=== PATIENT | female | born 1985 | race Caucasian/White ===

== ENCOUNTER 2016-06-22 18:50 | Inpatient (IN) | payer BC ==
[2016-06-22] MEDS ORDERED: PROMETHAZINE HCL 25 MG/1 ML VIAL IVPUSH ONE (20:24)
[2016-06-22] MEDS ORDERED: BUTORPHANOL TARTRATE 1 MG/ML VIAL IVPB ONE (20:24)
[2016-06-22] MEDS ORDERED: DINOPROSTONE 10 MG VAGINAL SUPPOSITORY VG ONE (20:29)
--- NOTE | 2016-06-22 20:59 | PN ---
Progress Note (short form) - Note Progress Note: 31 yo @ 39.4 weeks gestation admitted for induction of labor. Cervidil inserted a t 8:[address] Stanley request. VE : /-2, membrane intact.
[2016-06-22] MEDS ORDERED: DEXTROSE 5%-LACTATED RINGERS 1,000 ML IV ONE (21:07)
[2016-06-22 21:13] LABS: BASOPHIL 0.4 % (0-2.0); EOSINOPHIL 0.5 % (0-4.5); MCH 30.3 pg (25.7-33.7); MCHC 33.7 g/dl (32.0-36.0); MEAN PLT VOLUME 8.2 fl (7.5-11.1); NEUTROPHILS 81.7 % (42.8-82.8); PLATELET COUNT 315 K/MM3 (134-434); RDW 13.4 % (11.6-15.6); WHITE BLOOD COUNT 12.6 K/mm3 (4.0-10.0)
[2016-06-22 21:25] LABS: INR 1.03 (0.82-1.09); PROTHROMBIN TIME (PATIENT) 11.3 SEC (9.98-11.88)
[2016-06-22 21:27] LABS: ACTIVATED PTT 28.1 SECONDS (26.9-34.4)
[2016-06-22 21:36] LABS: CALCIUM 8.7 mg/dL (8.5-10.1); COCKROFT - GAULT 273.4195; CREATININE 0.5 mg/dL (0.55-1.02)
[2016-06-22 23:24] VITALS: BMI 39.4
[2016-06-23] MEDS ORDERED: OXYTOCIN 15 UNITS/ LR 250 ML 250 ML IVPB SCH (06:30)
--- NOTE | 2016-06-23 08:15 | PN ---
Ante-Partal Exam - Subjective Subjective: Pt tolerating contractions Vital Signs: Vital Signs Temperature 98.0 F 06/23/16 06:00 Pulse Rate 81 06/23/16 06:00 Respiratory Rate 16 06/23/16 06:00 Blood Pressure 116/66 06/23/16 06:00 O2 Sat by Pulse Oximetry (%) Bleeding: No Headache: No Visual changes: No Right upper quadrant pain: No Pain (scale 1-10): 3 - Contractions Contractions: Yes Regularity: Irregular Intensity: Mild/Mod Monitor Mode: External - Exam during Labor Heart Rate: 135 Variability: Moderate Category: I Monitor Accelerations: Present Monitor Decelerations: None Exam: Vaginal Dilatation (cm): 4.5 Effacement (%): 90 Amniotic Membrane Status: Ruptured (AROM for clear fluid) Amniotic Fluid: Clear Presentation: Vertex Station: -1 - Intrapartum Hemorrhage Risk High Risk Factors: None Risk Score: 0 Risk Level: Low Risk - Assessment/Plan Assessment/Plan: 31 y/o with SIUP at 39.5 weeks here with elective IOL - FHTS cat 1 - AFVSS - s/p cervidil, AROM at this check for clear fluid, on pitiocin at 3 - continue active management - epidural prn
--- NOTE | 2016-06-23 13:38 | PN ---
Delivery - Delivery Vaginal Delivery: No Problems, Spontaneous Type of Anesthesia: Local, Epidural Episiotomy/Laceration: 2nd degree (and bilateral labial) EBL (cc): 350 Delivery, Single - Stages of Labor Date of Delivery: 06/23/16 Time of Delivery: 13:07 Date Placenta Delivered: 06/23/16 Time Placenta Delivered: 13:09 Placenta: Yes: Spontaneous, Expressed - Condition of Director Sanitation Bureau/Cotton Stomper Present: No Infant Gender: Female Position: Left, OA - 1 Minute Total Score: 9 5 Minutes Total Score: 9 - Feeding Plan Initial Plan: Exclusive throughout hospitalization Remarks - Remarks Remarks: Uncomplicated of baby girl from BLAYNE position anterior shoulder (right) delivered with ease, along with remainder of 3VC noted, clamped and cut placenta delivered spontaneously and in tact 2nd degree and bilateral labial lacerations noted - repaired with 2-0 chromic and 3-0 vicryl sutures with excellent hemostatic/cosmetic result EBL 350cc sponge and needle count correct at the end of the delivery pitocin running mom stable baby to well baby nursery Apgars 9/9
--- NOTE | 2016-06-23 13:44 | HP ---
Past Medical History - Admission Chief Complaint: Late entry from 0810 am. Here for labor induction History of Present Illness: 31 y/o with SIUP at 39.5 weeks gestation admitted last night for elective labor induction. The patient has had a complicated only by 1st trimester bleeding which resolved spontaneously, sciatic nerve pain and most recently PUPPS. The patient is also obese - BMI 39.5. A positive blood type, HIV negative, GBS negative, Rubella immune, HepBSAB negative. Pt reports occasional cramping/contractions. +FM, no VB/LOF upon admission. Pt received cervidil overnight which fell out at 3:00 am and the patient received one dose of Stadol 2mg and Phenergan 25mg IV for pain control. Currently the patient is tolerating contractions. History Source: Patient, Medical Record Limitations to Obtaining History: No Limitations - Past Medical History RELIGIOUS EDUCATOR: No: Migraine, Syncope Cardiovascular: No: HTN, DE Pulmonary: No: Asthma, COPD Gastrointestinal: No: GERD, GI Bleed Reproductive: No: Ectopic , Endometriosis, Fibroids, PID ...: 5 ...Para: 0 ...Term: 0 ...: 0 ...Spon : 2 ...Induced : 2 ...Multiple Gestation: 0 ...EDC by Dates: 06/25/16 ...EDC by Sono: 06/15/16 Heme/Onc: No: Anemia Infectious Disease: No: HIV, MRSA, STD's Psych: No: Anxiety, Bipolar, Depression Musculoskeletal: Yes: Other (sciatic nerve pain) Dermatology: Yes: Other (PUPPS) - Past Surgical History Hx Myomectomy: No Hx Transabdominal Cerclage: No Additional Surgical History: VTOP/TAB X 2 - Smoking History Smoking history: Former smoker Have you smoked in the past 12 months: No - Alcohol/Substance Use Hx Alcohol Use: No - Social History Usual Living Arrangement: Yes: With Spouse ADL: Independent History of Recent Travel: No Home Medications - Allergies Allergies/Adverse Reactions: Allergies Allergy/AdvReac Type Severity Reaction Status Date / Time amoxicillin Allergy Intermediate Hives Verified 06/06/16 03:39 - Home Medications Home Medications: Ambulatory Orders Vit/Iron Fumarate/FA [ Tablet] 1 tablet PO DAILY 06/06/16 Review of Systems - Review of Systems Constitutional: reports: No Symptoms Eyes: reports: No Symptoms HENT: reports: No Symptoms Neck: reports: No Symptoms Cardiovascular: reports: No Symptoms Respiratory: reports: No Symptoms Gastrointestinal: reports: No Symptoms Genitourinary: reports: No Symptoms Breasts: reports: No Symptoms Reported Musculoskeletal: reports: No Symptoms Integumentary: reports: No Symptoms Neurological: reports: No Symptoms Endocrine: reports: No Symptoms Hematology/Lymphatic: reports: No Symptoms Psychiatric: reports: No Symptoms Pain Intensity: 4 (with occasional contractions) Physical Exam - Maternity Vital Signs: Vital Signs Temperature 98.2 F 06/23/16 10:00 Pulse Rate 78 06/23/16 12:00 Respiratory Rate 18 06/23/16 12:00 Blood Pressure 111/62 06/23/16 12:00 O2 Sat by Pulse Oximetry (%) Constitutional: Yes: Well Nourished, No Distress, Calm Eyes: Yes: Conjunctiva Clear, EOM Intact HENT: Yes: Atraumatic, Normocephalic Neck: Yes: Supple, Trachea Midline Cardiovascular: Yes: Regular Rate and Rhythm Lungs: Clear to auscultation Breast(s): Yes: WNL - Abdominal Exam/OB Fundal Height: 40 Number of Fetuses: Single Presentation: Vertex Contractions: Yes Regularity: Irregular Intensity: Mild/Mod Monitor Mode: External Category: I Accelerations: Uniform Decelerations: None - Vaginal Exam/OB Vaginal Bleediing: No Dilatation (cm): 4.5 Effacement (%): 90 Amniotic Membrane Status: Intact Presentation: Vertex/Position Station: -2 - Physical Exam Psychiatric: Yes: Alert, Oriented - Labs Lab Results: CBC, BMP 06/22/16 20:30 06/22/16 20:30 Hemorrhage Risk Assessment - Risk Factors Medium Risk Factors: Yes: None High Risk Factors: Yes: None Risk Score: 1 Risk Level: Medium Risk Problem List - Problems (1) Term Code(s): Z34.80 - ENCOUNTER FOR SUPRVSN OF NORMAL , UNSP TRIMESTER (2) Obesity (BMI 30-39.9) Code(s): E66.9 - OBESITY, UNSPECIFIED (3) Sciatic nerve pain Code(s): M54.30 - SCIATICA, UNSPECIFIED SIDE (4) PUPP (pruritic urticarial papules and plaques of ) Code(s): O26.86 - PRURITIC URTICARIAL PAPULES AND PLAQUES OF (PUPPP) Assessment/Plan 31 y/o admitted for elective labor induction, s/p cervidil - AFVSS - FHTs cat 1 - for AROM and then continue pitocin - GBS negative
[2016-06-23] MEDS ORDERED: BISACODYL 10 MG SUPP.RECT RC PRN (13:51)
[2016-06-23] MEDS ORDERED: BENZOCAINE 20% 57 GM BOTTLE TP PRN (13:51)
[2016-06-23] MEDS ORDERED: METHYLERGONOVINE MALEATE 0.2 MG/1 ML AMP IM PRN (13:51)
[2016-06-23] MEDS ORDERED: BENZOCAINE 28 GM HEMORRHOIDAL OINTMENT TP PRN (13:51)
[2016-06-23] MEDS ORDERED: WITCH HAZEL 50% (TUCKS) 40 PAD/JAR PAD TP PRN (13:51)
[2016-06-23] MEDS ORDERED: oxyCODONE HCL 5 MG TABLET PO PRN (13:51)
[2016-06-23] MEDS ORDERED: D5W-LR W/ 20 UNITS OXYTOCIN 1,000 ML IV SCH (14:00)
[2016-06-23] MEDS: ACETAMINOPHEN 325 MG TABLET (FP) PO PRN ×2 (14:20→18:07)
[2016-06-23] MEDS: IBUPROFEN 600 MG TABLET (FP) PO PRN ×2 (14:20→18:07)
[2016-06-23] MEDS ORDERED: TUBERCULIN PPD 5 TU/0.1ML SYRINGE (IN PATIENT USE ONLY) ID ONE (16:00)
[2016-06-24] MEDS: IBUPROFEN 600 MG TABLET (FP) PO PRN ×4 (01:44→22:51)
[2016-06-24] MEDS: ACETAMINOPHEN 325 MG TABLET (FP) PO PRN ×4 (01:46→22:50)
[2016-06-24 08:34] LABS: BASOPHIL 0.3 % (0-2.0); EOSINOPHIL 0.9 % (0-4.5); MCH 30.5 pg (25.7-33.7); MCHC 33.7 g/dl (32.0-36.0); MEAN CELL VOLUME 90.6 fl (80-96); MEAN PLT VOLUME 7.6 fl (7.5-11.1); NEUTROPHILS 75.1 % (42.8-82.8); PLATELET COUNT 265 K/MM3 (134-434); RDW 13.5 % (11.6-15.6); WHITE BLOOD COUNT 11.8 K/mm3 (4.0-10.0)
[2016-06-24] MEDS: PRENATAL VITAMINS W/ FOLIC ACID TABLET (FP) PO SCH (09:04)
[2016-06-24] MEDS ORDERED: DIPHTH,PERTUSS(ACELL),TET 0.5 ML DISP.SYRIN IM ONE (10:00)
--- NOTE | 2016-06-24 10:19 | PN ---
Post Progress Note - Subjective Subjective: Pt seen/evaluated today. Some perineal/vulvar soreness, otherwise no complaints. Voiding, passing flatus, tolerating diet and ambulating without difficulty. Feels well. Type of Delivery: Vital Signs: Vital Signs Temperature 98.2 F 06/24/16 10:00 Pulse Rate 103 H 06/24/16 10:00 Respiratory Rate 20 06/24/16 10:00 Blood Pressure 126/75 06/24/16 10:00 O2 Sat by Pulse Oximetry (%) Breast Exam: Yes: Soft Uterus: Yes: Fundus Firm, Fundus below umbilicus Abdomen/GI: Yes: Abdomen soft, Passing flatus, Tolerating PO. No: Abdominal Distention, Tender Lochia: Yes: Rubra Lochia, amount: Moderate Extremities: Yes: Edema (trace b/l edema ) Perineum: Yes: Laceration (2nd degree and right labial - repaired and healing well) - Labs Labs: CBC WBC 11.8 K/mm3 (4.0-10.0) H 06/24/16 07:45 RBC 2.98 M/mm3 (3.60-5.2) L 06/24/16 07:45 Hgb 9.1 GM/dL (10.7-15.3) L D 06/24/16 07:45 Hct 27.0 % (32.4-45.2) L D 06/24/16 07:45 MCV 90.6 fl (80-96) 06/24/16 07:45 MCHC 33.7 g/dl (32.0-36.0) 06/24/16 07:45 RDW 13.5 % (11.6-15.6) 06/24/16 07:45 Plt Count 265 K/MM3 (134-434) 06/24/16 07:45 MPV 7.6 fl (7.5-11.1) 06/24/16 07:45 Neutrophils % 75.1 % (42.8-82.8) 06/24/16 07:45 Lymphocytes % 16.9 % (8-40) D 06/24/16 07:45 Monocytes % 6.8 % (3.8-10.2) 06/24/16 07:45 Eosinophils % 0.9 % (0-4.5) 06/24/16 07:45 Basophils % 0.3 % (0-2.0) 06/24/16 07:45 Problem List - Problems (1) Term Code(s): Z34.80 - ENCOUNTER FOR SUPRVSN OF NORMAL , UNSP TRIMESTER (2) Obesity (BMI 30-39.9) Code(s): E66.9 - OBESITY, UNSPECIFIED (3) Sciatic nerve pain Code(s): M54.30 - SCIATICA, UNSPECIFIED SIDE (4) PUPP (pruritic urticarial papules and plaques of ) Code(s): O26.86 - PRURITIC URTICARIAL PAPULES AND PLAQUES OF (PUPPP) Assessment/Plan 31 y/o post day 1 from normal , stable and doing well - AFVSS - Hgb 9.1 post delivery, pt asymptomatic, stable, will continue vitamins +iron - regular diet - PO pain meds - routine care
[2016-06-24] MEDS ORDERED: SENNOSIDES/DOCUSATE COMBO (SENNA PLUS) TABLET (UD) PO PRN (22:00)
[2016-06-25] MEDS: ACETAMINOPHEN 325 MG TABLET (FP) PO PRN (08:31)
[2016-06-25] MEDS: IBUPROFEN 600 MG TABLET (FP) PO PRN (08:31)
[2016-06-25] MEDS: PRENATAL VITAMINS W/ FOLIC ACID TABLET (FP) PO SCH (09:32)
[2016-06-25 14:41] VITALS: BP 126/74; PULSE 88; TEMP 98
--- NOTE | 2016-07-10 14:19 | DS ---
DATE OF ADMISSION: 06/22/2016 DATE OF DISCHARGE: 06/25/2016 DIAGNOSES UPON ADMISSION: 1. Full-term, single intrauterine . 2. Obesity. 3. Sciatica. 4. Elective labor induction. DISCHARGE DIAGNOSES: 1. Full-term, single intrauterine . 2. Obesity. 3. Sciatica. 4. Elective labor induction. ADMITTING PHYSICIAN: Ashleigh Stanley DO LABORATORY DATA UPON DISCHARGE: Include a white blood cell count of 11.8, hemoglobin of 9.1, platelet count of 265. VITAL SIGNS UPON THE DAY OF DISCHARGE: A temperature of 98, pulse rate of 88, blood pressure of 126/74, a blood pressure mean of 91, and a respiratory rate of 20. CONSULTATIONS DURING HOSPITAL STAY: None. BRIEF HISTORY OF HOSPITAL STAY: Patient is a 31-year-old G5, P 0-0-4-0 who was admitted to Labor and Delivery on June 22, 2016, for an elective labor induction. The patient was about 39.4 weeks' gestation. The laborist concrete curer started Cervidil vaginally for induction of labor. On the evening of June 22, 2016, and on the morning of June 23, 2016, the patient was examined, and her cervix was found to be approximately 4.5 cm dilated, 90% effaced, and vertex was at -2 station. At which point, the patient's membranes were ruptured, and she was started on Pitocin. Later in the day on June 23, 2016, the patient underwent a normal spontaneous vaginal delivery of a live female . Please see delivery note for full details of the delivery. Patient had secondary perineal laceration and bilateral labial lacerations which were repaired in the usual fashion. On day 1 on June 24, 2016, the patient was doing well, ambulating, tolerating a regular diet, voiding, and had [id number] lochia rubra. On day 2, the patient was stable, again ambulating, voiding, tolerating a regular diet, passing flatus, and had minimal lochia. The patient was deemed stable for discharge home, was discharged home on day 2 in stable condition. The patient was given instructions to call with any heavy vaginal bleeding, fevers greater than 101.0, and any pain not controlled by pain medication. She was instructed to use Tylenol and Motrin over the counter for pain control as needed. The patient expressed understanding of these instructions, was discharged home in stable condition on June 25, 2016. ASHLEIGH STANLEY DO /[id number]
== END 2016-06-25 12:30 | disposition home or self-care (01) | DRG 775 ==
LOC: UNDOADMIN 18:50 → JLDR 18:50 → J3W 06-23 15:15
PROVIDERS: ADMIT Obstetrics & Gynecology; ATTEND Obstetrics & Gynecology
PROC: 3E0P7GC Introduction of Other Therapeutic Substance into Female Reproductive, Via Natural or Artificial Opening (ICD-10-PCS; 2016-06-22)
PROC: 10E0XZZ Delivery of Products of Conception, External Approach (ICD-10-PCS; principal; 2016-06-23)
PROC: 0KQM0ZZ Repair Perineum Muscle, Open Approach (ICD-10-PCS; 2016-06-23)
PROC: 0W8NXZZ Division of Female Perineum, External Approach (ICD-10-PCS; 2016-06-23)
DX: O70.1 Second degree perineal laceration during delivery (principal); Z37.0 Single live birth; O99.214 Obesity complicating childbirth; E66.9 Obesity, unspecified; Z68.39 Body mass index [BMI] 39.0-39.9, adult; Z3A.39 39 weeks gestation of pregnancy
CPT/HCPCS: 36415; 59409; 80048; 85025; 85610; 85730; 86593; 86850; 86900; 86901; 90715

== ENCOUNTER 2018-07-22 00:32 | Emergency (ER) | payer BC ==
[2018-07-22 01:37] VITALS: BP 111/71; PULSE 101; TEMP 98; BMI 37.4
--- NOTE | 2018-07-22 01:43 | PDOC ---
History of Present Illness - General Chief Complaint: Nausea/Vomiting Stated Complaint: VOMITING,9 WKS Time Seen by Provider: 07/22/18 01:43 - History of Present Illness Initial Comments: 33yo A5 currently 9 weeks (unknown LMP) with no significant PMH presenting with nausea and vomiting. Patient states she has had nausea/vomiting throughout the , but it has gotten acutely worse over the past two days. Her oil burner servicer and installer had prescribed her promethazine one week ago, but it stopped working. Patient has been unable to tolerate po intake without vomiting. She estimates about 40 episodes of bilious vomiting today. IUP with heartbeat has been confirmed via 7 week ultrasound. No abdominal pain, contractions, vaginal bleeding, or discharge. No dysuria, hematuria, or urgency. Denies fever, chills , chest pain, or shortness of breath. water quality assistant: Dr. Stanley Past History - Past Medical History Allergies/Adverse Reactions: Allergies Allergy/AdvReac Type Severity Reaction Status Date / Time amoxicillin Allergy Intermediate Hives Verified 07/22/18 01:37 Home Medications: Ambulatory Orders Vit/Iron Fum/Folic AC [ Tablet] 1 tablet PO DAILY 06/06/16 Metoclopramide HCl [Reglan] 10 mg PO PRN PRN #10 tablet 07/22/18 Nitrofurantoin Monohyd/M-Cryst [Macrobid -] 100 mg PO BID #10 capsule 07/22/18 GI Disorders: Yes (gallstones) - Reproductive History (#): 4 Para: 0 Spontaneous : 3 - Immunization History Immunization Up to Date: Yes - Suicide/Smoking/Psychosocial Hx Smoking History: Never smoked Have you smoked in the past 12 months: No Information on smoking cessation initiated: No Hx Alcohol Use: No Drug/Substance Use Hx: No Substance Use Type: None Review of Systems - Review of Systems Comments:: Constitutional: no fever, no chills HEENT: no throat pain, no dysphagia Cardiovascular: no chest pain, no palpitations Respiratory: no cough, no shortness of breath Gastrointestinal: no abdominal pain, +vomiting Genitourinary: no dysuria, no frequency Musculoskeletal: no myalgia, no arthralgia Skin: no rash, no itching Neurologic: no headache, no weakness *Physical Exam - Vital Signs Last Vital Signs Temp Pulse Resp BP Pulse Ox 98 F 101 H 18 111/71 98 07/22/18 00:32 07/22/18 00:32 07/22/18 00:32 07/22/18 00:32 07/22/18 00:32 - Physical Exam Comments: General: Awake, alert, and fully oriented, in no acute distress Head: No signs of trauma Eyes: EOMI, sclera anicteric ENT: Dry mucus membranes Neck: Normal ROM, supple Lungs: Lungs clear, Normal breath sounds Cardio: Regular rhythm, S1 and S2 present Abdomen: Soft, nontender Extremities: Normal range of motion, Distal pulses present SKIN: Warm, Dry, normal turgor Neurologic: Cranial nerves II through XII grossly intact. Normal speech ED Treatment Course - LABORATORY CBC & Chemistry Diagram: 07/22/18 02:09 07/22/18 02:09 Medical Decision Making - Medical Decision Making 33yo A5 currently 9 weeks (unknown LMP) with no significant PMH presenting with nausea and vomiting. DDX including but not limited to nausea/vomiting in , hyperemesis gravidarum, gastritis 1L NS, 4mg Zofran Denies pain, bleeding, or contractions. Previous TS is Rh+ 07/22/18 02:28 Patient no longer feels nauseous 07/22/18 02:49 CBC WBC 14.1 K/mm3 (4.0-10.0) H 07/22/18 02:09 RBC 4.91 M/mm3 (3.60-5.2) 07/22/18 02:09 Hgb 14.0 GM/dL (10.7-15.3) 07/22/18 02:09 Hct 42.7 % (32.4-45.2) D 07/22/18 02:09 MCV 86.9 fl (80-96) 07/22/18 02:09 MCH 28.6 pg (25.7-33.7) 07/22/18 02:09 MCHC 32.9 g/dl (32.0-36.0) 07/22/18 02:09 RDW 13.1 % (11.6-15.6) 07/22/18 02:09 Plt Count 424 K/MM3 (134-434) D 07/22/18 02:09 MPV 7.3 fl (7.5-11.1) L 07/22/18 02:09 Absolute Neuts (auto) 11.5 K/mm3 (1.5-8.0) H 07/22/18 02:09 Neutrophils % 81.9 % (42.8-82.8) 07/22/18 02:09 Lymphocytes % 12.2 % (8-40) D 07/22/18 02:09 Monocytes % 5.2 % (3.8-10.2) 07/22/18 02:09 Eosinophils % 0.2 % (0-4.5) 07/22/18 02:09 Basophils % 0.5 % (0-2.0) 07/22/18 02:09 Nucleated RBC % 0 % (0-0) 07/22/18 02:09 Leukocytosis of 14.1 No anemia CMP Sodium 137 mmol/L (136-145) 07/22/18 02:09 Potassium 3.8 mmol/L (3.5-5.1) 07/22/18 02:09 Chloride 104 mmol/L (98-107) 07/22/18 02:09 Carbon Dioxide 23 mmol/L (21-32) 07/22/18 02:09 Anion Gap 10 MMOL/L (8-16) 07/22/18 02:09 BUN 11 mg/dL (7-18) 07/22/18 02:09 Creatinine 0.5 mg/dL (0.55-1.3) L 07/22/18 02:09 Est GFR (CKD-EPI)AfAm 149.47 07/22/18 02:09 Est GFR (CKD-EPI)NonAf 128.97 07/22/18 02:09 Random Glucose 81 mg/dL (74-106) 07/22/18 02:09 Calcium 9.0 mg/dL (8.5-10.1) 07/22/18 02:09 Total Bilirubin 0.8 mg/dL (0.2-1) 07/22/18 02:09 AST 17 U/L (15-37) 07/22/18 02:09 ALT 39 U/L (13-61) 07/22/18 02:09 Alkaline Phosphatase 75 U/L (45-117) 07/22/18 02:09 Total Protein 7.6 g/dl (6.4-8.2) 07/22/18 02:09 Albumin 3.6 g/dl (3.4-5.0) 07/22/18 02:09 Beta HCG, Quant mIU/ml 07/22/18 02:09 Electrolytes WNL UA with bacteriuria and trace LE, 6WBC Will treat with macrobid Administering another 1L of NS Patient endorsing acid reflux, requesting pepcid. Ordered. 07/22/18 03:40 B-hcg is appropriate for estimated gestational age. Patient feeling much better Passed po challenge of water and saltine crackers Prescriptions sent to pharmacy Discharged 07/22/18 04:51 *DC/Admit/Observation/Transfer Diagnosis at time of Disposition: Vomiting affecting - Discharge Dispostion Disposition: HOME Condition at time of disposition: Stable - Prescriptions Prescriptions: Metoclopramide HCl [Reglan] 10 mg PO PRN PRN #10 tablet PRN Reason: Nausea Nitrofurantoin Monohyd/M-Cryst [Macrobid -] 100 mg PO BID #10 capsule - Referrals Referrals: Ashleigh Stanley DO [Staff Physician] - - Patient Instructions Printed Discharge Instructions: DI for Hyperemesis Gravidarum Additional Instructions: You were seen in the Emergency Department for nausea/vomiting during . Blood work was within normal limits. Urinalysis showed that you have bacteria in the urine. Prescriptions sent to your pharmacy. Follow-up with your oil burner servicer and installer. Call tomorrow morning and make an appointment. Your care is not complete until you do so. Return to the Emergency Department if you experience: -severe pain -persistent vomiting unrelieved by medicine, -lightheadedness -shortness of breath -high fever -any other concerning symptoms If you think you are having an emergency, call for emergency medical services or present to the emergency department right away. - Post Discharge Activity
--- NOTE | 2018-07-22 01:52 | PDOC ---
Attending Attestation - Resident Resident Name: Carmelita Freeman - ED Attending Attestation I have performed the following: I have examined & evaluated the patient, The case was reviewed & discussed with the resident, I agree w/resident's findings & plan - HPI HPI: 07/22/18 03:14 33-year-old gravid female complaining of nausea vomiting. Patient has had hyperemesis associated with this and is currently on promethazine at home which stopped working after using it for several days. She denies pelvic pain back pain or bleeding. She is well followed by an MANAGER OF PATIENT. - Physicial Exam PE: 07/22/18 03:15 Agree with resident's exam - Medical Decision Making 07/22/18 03:15 33-year-old gravid female with nausea vomiting Ultrasound at the bedside confirmed heart activity Patient received 2 L of IV fluid normal saline as well as Pepcid 20 mg IV and Zofran 4 mg IV She will be discharged on Reglan when necessary with MANAGER OF PATIENT follow-up
[2018-07-22] MEDS ORDERED: SODIUM CHLORIDE 1,000 ML IV STA ×2 (01:55→03:09)
[2018-07-22] MEDS ORDERED: ONDANSETRON 4 MG/2 ML VIAL IVPUSH ONE (01:56)
[2018-07-22 02:20] LABS: BASO % 0.5 % (0-2.0); EOS % 0.2 % (0-4.5); HEMATOCRIT 42.7 % (32.4-45.2); LYMPH % 12.2 % (8-40); MCH 28.6 pg (25.7-33.7); MCHC 32.9 g/dl (32.0-36.0); MEAN CELL VOLUME 86.9 fl (80-96); MEAN PLT VOLUME 7.3 fl (7.5-11.1); MONO % 5.2 % (3.8-10.2); NEUT % 81.9 % (42.8-82.8); PLATELET COUNT 424 K/MM3 (134-434); RBC 4.91 M/mm3 (3.60-5.2); RDW 13.1 % (11.6-15.6); WHITE BLOOD COUNT 14.1 K/mm3 (4.0-10.0)
[2018-07-22] MEDS ORDERED: ONDANSETRON 4 MG/2 ML VIAL ONE (02:21)
[2018-07-22 02:52] LABS: EPI CELLS 6.2 /HPF (0-5/HPF); HYALINE CASTS 17 /lpf (0-8); PH,URINE 5.5 (5.0-8.0); URINE APPEARANCE CLEAR; URINE BACTERIA 434.6 /hpf (NEGATIVE); URINE BILIRUBIN 2+ (NEGATIVE); URINE COLOR DK YELLOW; URINE GLUCOSE (UA) NEGATIVE (NEGATIVE); URINE KETONE 4+ (NEGATIVE); URINE LEUK ESTERASE TRACE (NEGATIVE); URINE NITRITE NEGATIVE (NEGATIVE); URINE PROTEIN NEGATIVE (NEGATIVE); URINE RBC 6 /hpf (0-4); URINE WBC 6 /hpf (0-5)
[2018-07-22 03:04] LABS: ALBUMIN 3.6 g/dl (3.4-5.0); BILIRUBIN,TOTAL 0.8 mg/dL (0.2-1); CREATININE 0.5 mg/dL (0.55-1.3); POTASSIUM 3.8 mmol/L (3.5-5.1); TOT PROT 7.6 g/dl (6.4-8.2)
[2018-07-22] MEDS ORDERED: NITROFURANTOIN MACROCRYSTAL 50 MG CAPSULE (FP) PO SCH (03:15)
[2018-07-22] MEDS ORDERED: FAMOTIDINE 20 MG/50 ML IVPB 20 MG/50 ML MG IVPB ONE ×2 (03:25→03:47)
[2018-07-22] MEDS ORDERED: NITROFURANTOIN MACROCRYSTAL 50 MG CAPSULE (FP) ONE (04:05)
== END 2018-07-22 04:47 | disposition home or self-care (01) ==
LOC: JER 00:32
PROC: 3E0337Z Introduction of Electrolytic and Water Balance Substance into Peripheral Vein, Percutaneous Approach (ICD-10-PCS; principal; 2018-07-22)
PROC: 3E0337Z Introduction of Electrolytic and Water Balance Substance into Peripheral Vein, Percutaneous Approach (ICD-10-PCS; 2018-07-22)
PROC: 3E033GC Introduction of Other Therapeutic Substance into Peripheral Vein, Percutaneous Approach (ICD-10-PCS; 2018-07-22)
PROC: 3E033GC Introduction of Other Therapeutic Substance into Peripheral Vein, Percutaneous Approach (ICD-10-PCS; 2018-07-22)
DX: O26.891 Other specified pregnancy related conditions, first trimester (principal); O21.0 Mild hyperemesis gravidarum; Z3A.09 9 weeks gestation of pregnancy
CPT/HCPCS: 36415; 80053; 81003; 84702; 85025; 87086; 99282-25; J7030

== ENCOUNTER 2019-02-15 19:00 | Inpatient (IN) | payer BC ==
--- NOTE | 2019-02-15 20:28 | HP ---
Past Medical History - Primary Care Physician PCP:: Louise Stratton - Admission Chief Complaint: Induction. IUP at 39 week History Source: Patient - Past Medical History ...: 7 ...Para: 1 ...EDC by Sono: 02/22/19 Musculoskeletal: Yes: Other (sciatic nerve pain) Dermatology: Yes: Other (PUPPS) - Past Surgical History Past Surgical History: Yes: None Hx Myomectomy: No Hx Transabdominal Cerclage: No - Smoking History Smoking history: Never smoked Have you smoked in the past 12 months: No - Alcohol/Substance Use Hx Alcohol Use: No History of Substance Use: reports: None - Social History ADL: Independent History of Recent Travel: No Home Medications - Allergies Allergies/Adverse Reactions: Allergies Allergy/AdvReac Type Severity Reaction Status Date / Time amoxicillin Allergy Intermediate Hives Verified 02/08/19 09:48 - Home Medications Home Medications: Ambulatory Orders Vit/Iron Fum/Folic AC [ Tablet] 1 tablet PO DAILY 06/06/16 Review of Systems - Review of Systems Constitutional: reports: No Symptoms Eyes: reports: No Symptoms HENT: reports: No Symptoms Neck: reports: No Symptoms Cardiovascular: reports: No Symptoms Respiratory: reports: No Symptoms Gastrointestinal: reports: No Symptoms Genitourinary: reports: No Symptoms Breasts: reports: No Symptoms Reported Musculoskeletal: reports: No Symptoms Integumentary: reports: No Symptoms Neurological: reports: No Symptoms Endocrine: reports: No Symptoms Hematology/Lymphatic: reports: No Symptoms Psychiatric: reports: No Symptoms Physical Exam - Maternity Constitutional: Yes: Well Nourished, No Distress Lungs: Clear to auscultation Breast(s): Yes: WNL - Abdominal Exam/OB Fundal Height: 40 Number of Fetuses: Single Presentation: Vertex Contractions: No Heart Rate (range): 140 Heart Rate Location: [facility] Category: I Accelerations: Non-Uniform Decelerations: None - Vaginal Exam/OB Dilatation (cm): 2 Effacement (%): 70 Amniotic Membrane Status: Intact Presentation: Vertex/Position - Physical Exam Musculoskeletal: Yes: WNL Extremities: Yes: WNL Edema: No Hemorrhage Risk Assessment - Risk Factors Risk Score: 0 Risk Level: Low Risk Problem List - Problems (1) Obesity, Class III, BMI 40-49.9 (morbid obesity) Problems reviewed: Yes Code(s): E66.01 - MORBID (SEVERE) OBESITY DUE TO EXCESS CALORIES (2) Obesity affecting in third trimester Problems reviewed: Yes Code(s): O99.213 - OBESITY COMPLICATING , THIRD TRIMESTER (3) 39 weeks gestation of Code(s): Z3A.39 - 39 WEEKS GESTATION OF Assessment/Plan obesity iup @39 week Cat 1 GBS negative VTOP x2 Hx of miscarriage x 3 at 12 week Trisomy 21 Plan cervidil pt desires epidural
[2019-02-15] MEDS ORDERED: DINOPROSTONE 10 MG VAGINAL SUPPOSITORY VG ONE (20:30)
[2019-02-15 20:33] LABS: BASO % 0.4 % (0-2.0); EOS % 0.4 % (0-4.5); HEMOGLOBIN 11.1 GM/dL (10.7-15.3); LYMPH % 18.5 % (8-40); MCH 28.6 pg (25.7-33.7); MCHC 33.7 g/dl (32.0-36.0); MEAN CELL VOLUME 84.8 fl (80-96); MEAN PLT VOLUME 8.7 fl (7.5-11.1); NEUT % 72.7 % (42.8-82.8); PLATELET COUNT 296 K/MM3 (134-434); RBC 3.89 M/mm3 (3.60-5.2); RDW 13.4 % (11.6-15.6); WHITE BLOOD COUNT 8.8 K/mm3 (4.0-10.0)
[2019-02-15 20:45] LABS: INR 0.98 (0.83-1.09); PROTHROMBIN TIME (PATIENT) 11.6 SEC (9.7-13.0)
[2019-02-15 20:48] LABS: ACTIVATED PTT 28.2 SECONDS (25.2-36.5)
[2019-02-15 20:58] LABS: BLOOD UREA NITROGEN 12.4 mg/dL (7-18); CALCIUM 8.4 mg/dL (8.5-10.1); CREATININE 0.5 mg/dL (0.55-1.3); POTASSIUM 4.2 mmol/L (3.5-5.1)
[2019-02-15] MEDS: ELECTROLYTE-148 SOLN 1,000 ML IV SCH (21:00)
[2019-02-15 21:25] VITALS: BMI 40.3
[2019-02-15] MEDS ORDERED: BUTORPHANOL TARTRATE 1 MG/ML VIAL IVPUSH PRN (23:29)
[2019-02-15] MEDS ORDERED: BUTORPHANOL TARTRATE 1 MG/ML VIAL ONE ×2 (23:30)
[2019-02-15] MEDS ORDERED: PROMETHAZINE HCL 25 MG/1 ML VIAL IVPB PRN (23:30)
--- NOTE | 2019-02-15 23:32 | PN ---
Ante-Partal Exam - Subjective Subjective: Cervidil removed benitez Q 1 min desires stadol 2 cm 80% plan reevaluate after meds Vital Signs: Vital Signs Temperature 98.6 F 02/15/19 22:00 Pulse Rate 97 H 02/15/19 22:00 Respiratory Rate 20 02/15/19 21:00 Blood Pressure 130/60 02/15/19 22:00 O2 Sat by Pulse Oximetry (%) - Exam during Labor Heart Rate: 155 Variability: Moderate - Assessment/Plan Assessment/Plan: tentanic contractions with cervidil cont observation cat 1
[2019-02-16] MEDS ORDERED: FENTANYL/BUPIVACAINE/NS/PF - PCEA - 50 ML DISP.SYRIN EP ONE (05:07)
[2019-02-16] MEDS ORDERED: LIDO 2%/EPI 1:200000 PRESRVFRE (20 ML SDVIAL) ONE (05:27)
[2019-02-16] MEDS ORDERED: BUPIVACAINE HCL/PF 2.5 MG/ML - 30 ML VIAL IJ ONE (05:27)
[2019-02-16] MEDS ORDERED: NALOXONE HCL 0.4 MG/ML VIAL IVPUSH PRN (06:01)
[2019-02-16] MEDS ORDERED: FENTANYL/BUPIVACAINE/NS/PF - PCEA - 50 ML DISP.SYRIN EP SCH (06:15)
--- NOTE | 2019-02-16 07:04 | PN ---
Ante-Partal Exam - Subjective Subjective: Pt with some dizziness SP epidural Vital Signs: Vital Signs Temperature 98.4 F 02/16/19 04:00 Pulse Rate 78 02/16/19 06:45 Respiratory Rate 18 02/16/19 06:45 Blood Pressure 110/61 02/16/19 06:45 O2 Sat by Pulse Oximetry (%) 100 02/16/19 06:45 Bleeding: No Headache: No Visual changes: No Right upper quadrant pain: No - Contractions Contractions: Yes Monitor Mode: External - Exam during Labor Variability: Moderate Heart Rate Location: [facility] Category: I Monitor Accelerations: Present Monitor Decelerations: None Exam: Vaginal Dilatation (cm): 7 Effacement (%): 90 Amniotic Membrane Status: Intact Presentation: Vertex Station: -1 - Intrapartum Hemorrhage Risk Risk Score: 0 Risk Level: Low Risk - Assessment/Plan Assessment/Plan: Active labor Induction Cat 1 obesity Plan continue management
[2019-02-16] MEDS ORDERED: ROCURONIUM BROMIDE 50 MG/5 ML VIAL ONE (07:28)
[2019-02-16] MEDS ORDERED: PROPOFOL 20 ML ONE (07:28)
[2019-02-16] MEDS ORDERED: OXYTOCIN 20 UNITS in 0.9% NS 20 UNIT/1,000 ML INFUS.BAG IV ONE ×2 (08:02→09:43)
[2019-02-16] MEDS ORDERED: LIDOCAINE HCL 1% PRESERVATIVE FREE - 30ML VIAL ONE (08:02)
--- NOTE | 2019-02-16 08:41 | PN ---
Delivery - Delivery Vaginal Delivery: No Problems (Delivered in OA with nuchal cord x 1) Type of Anesthesia: Epidural (Nuchal Cord x 1) Episiotomy/Laceration: 1st degree EBL (cc): 250 Delivery, Single - Stages of Labor Placenta: Yes: Spontaneous - Condition of Infant Silk Screen Frame Assembler/Redevelopment Specialist Present: No Gender: Female Position: OA - Feeding Plan Initial Plan: Elected not to breastfeed exclusively throughout hospitalization
[2019-02-16] MEDS ORDERED: WITCH HAZEL 50% (TUCKS) 40 PAD/JAR PAD TP PRN (08:58)
[2019-02-16] MEDS ORDERED: BENZOCAINE 20% 57 GM BOTTLE TP PRN (08:58)
[2019-02-16] MEDS ORDERED: METHYLERGONOVINE MALEATE 0.2 MG/1 ML AMP IM PRN (08:58)
[2019-02-16] MEDS ORDERED: BISACODYL 10 MG SUPP.RECT RC PRN (08:58)
[2019-02-16] MEDS ORDERED: BENZOCAINE 28 GM HEMORRHOIDAL OINTMENT PR PRN (08:58)
[2019-02-16] MEDS: OXYTOCIN 20 UNITS in 0.9% NS 20 UNIT/1,000 ML INFUS.BAG IV SCH ×2 (09:11→10:15)
[2019-02-16] MEDS: OXYTOCIN 30 UNITS in 0.9% NS 30 UNIT/500 ML INFUS.BAG IVPB SCH (09:12)
[2019-02-16] MEDS ORDERED: IBUPROFEN 600 MG TABLET (FP) PO ONE (09:24)
[2019-02-16] MEDS ORDERED: ACETAMINOPHEN 325 MG TABLET (FP) ONE (09:24)
[2019-02-16] MEDS: ACETAMINOPHEN 325 MG TABLET (FP) PO PRN ×3 (09:28→23:24)
[2019-02-16] MEDS: IBUPROFEN 600 MG TABLET (FP) PO PRN ×3 (09:29→23:24)
[2019-02-16] MEDS: FENTANYL/BUPIVACAINE/NS/PF - PCEA - 50 ML DISP.SYRIN EP SCH (10:47)
[2019-02-16] MEDS ORDERED: DIPHTH,PERTUSS(ACELL),TET 0.5 ML DISP.SYRIN IM ONE (18:15)
[2019-02-17] MEDS: OXYTOCIN 30 UNITS in 0.9% NS 30 UNIT/500 ML INFUS.BAG IVPB SCH (07:26)
[2019-02-17] MEDS: ELECTROLYTE-148 SOLN 1,000 ML IV SCH (07:26)
[2019-02-17 08:10] LABS: BASO % 0.3 % (0-2.0); EOS % 0.9 % (0-4.5); HEMATOCRIT 28.7 % (32.4-45.2); HEMOGLOBIN 9.7 GM/dL (10.7-15.3); LYMPH % 26.7 % (8-40); MCH 29.4 pg (25.7-33.7); MCHC 33.9 g/dl (32.0-36.0); MEAN CELL VOLUME 86.5 fl (80-96); MEAN PLT VOLUME 8.6 fl (7.5-11.1); MONO % 7.8 % (3.8-10.2); NEUT % 64.3 % (42.8-82.8); PLATELET COUNT 237 K/MM3 (134-434); RBC 3.31 M/mm3 (3.60-5.2); RDW 13.2 % (11.6-15.6); WHITE BLOOD COUNT 9.4 K/mm3 (4.0-10.0)
[2019-02-17] MEDS: ACETAMINOPHEN 325 MG TABLET (FP) PO PRN ×3 (08:51→20:11)
[2019-02-17] MEDS: IBUPROFEN 600 MG TABLET (FP) PO PRN ×3 (08:51→20:11)
[2019-02-17] MEDS ORDERED: DIPHTH,PERTUSS(ACELL),TET 0.5 ML DISP.SYRIN IM ONE (10:00)
[2019-02-17] MEDS: FENTANYL/BUPIVACAINE/NS/PF - PCEA - 50 ML DISP.SYRIN EP SCH (11:16)
[2019-02-17] MEDS: OXYTOCIN 20 UNITS in 0.9% NS 20 UNIT/1,000 ML INFUS.BAG IV SCH (11:16)
[2019-02-17 23:53] VITALS: BP 122/64; PULSE 75; TEMP 98.2
[2019-02-18] MEDS: IBUPROFEN 600 MG TABLET (FP) PO PRN ×2 (00:15→06:02)
[2019-02-18] MEDS: ACETAMINOPHEN 325 MG TABLET (FP) PO PRN ×2 (00:15→06:02)
== END 2019-02-18 13:30 | disposition home or self-care (01) | DRG 807 ==
LOC: JLDR 19:00 → J3W 02-16 14:36
PROVIDERS: ADMIT Obstetrics & Gynecology; ATTEND Obstetrics & Gynecology
PROC: 0HQ9XZZ Repair Perineum Skin, External Approach (ICD-10-PCS; principal; 2019-02-16)
PROC: 10E0XZZ Delivery of Products of Conception, External Approach (ICD-10-PCS; 2019-02-16)
DX: O70.0 First degree perineal laceration during delivery (principal); O99.213 Obesity complicating pregnancy, third trimester; Z3A.39 39 weeks gestation of pregnancy; Z37.0 Single live birth
CPT/HCPCS: 36415; 36600; 59409; 80048; 82803; 85025; 85610; 85730; 86593; 86850; 86900; 86901; 90715

== ENCOUNTER 2023-11-14 20:48 | Emergency (ER) | payer BC ==
[2023-11-14 21:11] VITALS: BP 100/60; PULSE 89; RESP 16; TEMP 98.1; BMI 39.4
[2023-11-14] MEDS ORDERED: ONDANSETRON 4 MG/2 ML VIAL ONE (21:52)
[2023-11-14] MEDS: SODIUM CHLORIDE 0.9% 500 ML INFUS.BAG IV ONE (21:58)
[2023-11-14] MEDS: ONDANSETRON 4 MG/2 ML VIAL IVPUSH ONE (21:58)
[2023-11-14 22:00] LABS: BASO % 0.3 % (0-2.0); EOS % 0.4 % (0-4.5); HEMATOCRIT 39.2 % (32.4-45.2); HEMOGLOBIN 13.3 GM/dL (10.7-15.3); LYMPH % 10.6 % (8-40); MCH 30.7 pg (25.7-33.7); MCHC 34.1 g/dl (32.0-36.0); MEAN CELL VOLUME 90.1 fl (80-96); MEAN PLT VOLUME 7.4 fl (7.5-11.1); NEUT % 82.7 % (42.8-82.8); PLATELET COUNT 372 10^3/uL (134-434); RBC 4.34 M/mm3 (3.60-5.2); RDW 13.5 % (11.6-15.6); WHITE BLOOD COUNT 12.5 K/mm3 (4.0-10.0)
[2023-11-14 22:07] LABS: POTASSIUM 4.9 mmol/L (3.5-5.1)
[2023-11-14 22:10] LABS: ALBUMIN 3.5 g/dl (3.4-5.0); BLOOD UREA NITROGEN 9.9 mg/dL (7-18)
[2023-11-14 22:13] LABS: CREATININE 0.5 mg/dL (0.55-1.3)
[2023-11-14 22:14] LABS: BILIRUBIN,TOTAL 0.8 mg/dL (0.2-1); TOT PROT 6.9 g/dl (6.4-8.2)
[2023-11-14 22:14] LABS: PH,URINE 5.5 (5.0-8.0); URINE APPEARANCE CLEAR; URINE BILIRUBIN NEGATIVE (NEGATIVE); URINE COLOR YELLOW; URINE GLUCOSE (UA) NEGATIVE (NEGATIVE); URINE KETONE 1+ (NEGATIVE); URINE LEUK ESTERASE NEGATIVE (NEGATIVE); URINE NITRITE NEGATIVE (NEGATIVE); URINE PROTEIN NEGATIVE (NEGATIVE)
[2023-11-14] MEDS ORDERED: MAG HYDROX/AL HYDROX/SIMETH 30 ML UNIT-DOSE CUP ONE (23:27)
[2023-11-14] MEDS: MAG HYDROX/AL HYDROX/SIMETH 30 ML UNIT-DOSE CUP PO ONE (23:30)
== END 2023-11-14 23:38 | disposition home or self-care (01) ==
LOC: JER 20:48
PROC: 3E033GC Introduction of Other Therapeutic Substance into Peripheral Vein, Percutaneous Approach (ICD-10-PCS; principal; 2023-11-14)
DX: O09.521 Supervision of elderly multigravida, first trimester (principal); O21.9 Vomiting of pregnancy, unspecified; Z3A.09 9 weeks gestation of pregnancy
CPT/HCPCS: 36415; 76815; 80053; 81003; 83690; 84703; 85025; 87086; 99284-25